=== PATIENT | male | born 1965 | race African-American/Black ===

== ENCOUNTER 2017-04-22 00:45 | Emergency (ER) | payer MEDICAID ==
[~2017-04-22] VITALS: Ht 172.7 cm; Wt 57.5 kg
[2017-04-22 02:08] VITALS: BP 129/97
== END 2017-04-22 02:24 | disposition home or self-care (01) ==
LOC: ER 00:45
DX: R07.9 Chest pain, unspecified (principal); I51.7 Cardiomegaly; Z86.73 Personal history of transient ischemic attack (TIA), and cerebral infarction without residual deficits; Z87.891 Personal history of nicotine dependence; Z59.0 Homelessness
CPT/HCPCS: 93005; 99283; Z7610

== ENCOUNTER 2017-04-22 07:49 | Emergency (ER) | payer MEDICAID ==
[~2017-04-22] VITALS: Ht 172.7 cm; Wt 64.0 kg
[2017-04-22 08:05] VITALS: BP 125/68
== END 2017-04-22 11:41 | disposition left against medical advice (07) ==
LOC: ER 09:11
DX: Z53.21 Procedure and treatment not carried out due to patient leaving prior to being seen by health care provider (principal)

== ENCOUNTER 2017-04-22 19:55 | Emergency (ER) | payer MEDICAID ==
[~2017-04-22] VITALS: Ht 172.7 cm; Wt 73.0 kg
[2017-04-23 06:53] VITALS: BP 116/74
== END 2017-04-23 10:21 | disposition left against medical advice (07) ==
LOC: ER 21:32
DX: Z59.0 Homelessness (principal); F17.200 Nicotine dependence, unspecified, uncomplicated; Z86.73 Personal history of transient ischemic attack (TIA), and cerebral infarction without residual deficits
CPT/HCPCS: 99283

== ENCOUNTER 2017-04-24 08:13 | Emergency (ER) | payer MEDICAID ==
[~2017-04-24] VITALS: Ht 172.7 cm; Wt 73.0 kg
[2017-04-24 08:18] VITALS: BP 145/100
== END 2017-04-24 11:33 | disposition left against medical advice (07) ==
LOC: ER 08:13
DX: Z53.21 Procedure and treatment not carried out due to patient leaving prior to being seen by health care provider (principal)